=== PATIENT | male | born 1995 | race Caucasian/White ===

== ENCOUNTER 2019-05-20 19:20 | Emergency (ER) | payer OTHER ==
[~2019-05-20] VITALS: Ht 165.1 cm; Wt 65.8 kg
[~2019-05-20 19:20] MED LIST: AMOX500 PO; METPRE4DP PO; Norco 5-325 Ta1 EACH PO
== END 2019-05-21 00:01 | disposition home or self-care (01) ==
LOC: ER 19:20
DX: S29.012A Strain of muscle and tendon of back wall of thorax, initial encounter (principal); S50.312A Abrasion of left elbow, initial encounter; S10.91XA Abrasion of unspecified part of neck, initial encounter; V49.9XXA Car occupant (driver) (passenger) injured in unspecified traffic accident, initial encounter
CPT/HCPCS: 71046; 73080; 99284-25